=== PATIENT | female | born 1980 | race Caucasian/White ===

== ENCOUNTER 2017-08-09 12:36 | Emergency (ER) | payer SELFPAY ==
[2017-08-09] MEDS ORDERED: Naproxen 500 MG TAB ONE (14:40)
[2017-08-09] MEDS ORDERED: AMOXicillin 250 MG CAP ONE (14:40)
[2017-08-09] MEDS ORDERED: Oxymetazoline HCl 0.05% ( 15 ML ) ONE (14:40)
[2017-08-09] MEDS ORDERED: Benzonatate 100 MG CAP ONE (14:40)
== END 2017-08-09 14:50 | disposition home or self-care (01) ==
LOC: MADERS 12:36
DX: J01.90 Acute sinusitis, unspecified (principal); F41.9 Anxiety disorder, unspecified; F17.210 Nicotine dependence, cigarettes, uncomplicated
CPT/HCPCS: 99283

== ENCOUNTER 2017-12-18 21:07 | Emergency (ER) | payer MEDICAID ==
[2017-12-18] MEDS ORDERED: Ibuprofen 800 MG TAB ONE (21:28)
[2017-12-18] MEDS ORDERED: Amoxicillin/Potassium Clav 875 MG TAB ONE (21:28)
[2017-12-18] MEDS ORDERED: predniSONE 20 MG TAB ONE (21:28)
[2017-12-18] MEDS ORDERED: Pseudoephedrine HCl 30 MG TAB ONE (21:32)
== END 2017-12-18 21:45 | disposition home or self-care (01) ==
LOC: MADERS 21:07
DX: J01.90 Acute sinusitis, unspecified (principal); F17.210 Nicotine dependence, cigarettes, uncomplicated
CPT/HCPCS: 99283; J7506

== ENCOUNTER 2018-08-18 11:03 | Emergency (ER) | payer MEDICAID ==
[~2018-08-18 11:03] MED LIST: Iopamidol 370 76% 100 ML VIAL ONE
[2018-08-18 12:10] LABS: #Basophils 0.1 thou/uL (0.0-0.2); #Eosinphils 0.3 thou/uL (0.0-0.7); #Lymphocytes 2.9 thou/uL (1.20-3.40); #Monocytes 0.7 thou/uL (0.11-0.59); #Neutrophils 8.5 thou/uL (1.40-6.50); %Basophils 0.9 % (0.0-1.0); %Eosinophils 2.2 % (0.0-10.0); %Lymphocytes 23.1 % (21.0-51.0); %Monocytes 5.3 % (0.0-10.0); %Neutrophils 68.5 % (42.0-75.0); Hemoglobin 13.5 g/dL (12.0-16.0); Mean Corpuscular HGB CONC 31.9 g/dL (32.0-36.0); Mean Corpuscular Hemoglobin 27.5 pg (27.0-31.0); Mean Corpuscular Volume 86.2 fL (78.0-98.0); Mean Platelet Volume 9.1 fL (7.4-10.4); Platelet Count 293 thou/uL (130-400); RBC Distribution Width 13.8 % (11.5-14.5); Red Blood Cell (RBC) Count 4.92 mill/uL (4.20-5.40); White Blood Cell (WBC) Count 12.3 thou/uL (4.8-10.8)
[2018-08-18 12:13] LABS: Pregnancy Test - Urine (BHCG) Negative (Negative); Pregu Control Background? CLEAR/WHITE (CLR/WHITE); Pregu Control Bar Appear? YES (CONTROL BAR); Specific Gravity 1.015 (1.002-1.036)
[2018-08-18 12:14] LABS: Bilirubin Negative (Negative); Blood, Urine Moderate (Negative); Clarity Clear (Clear); Glucose, Urine (Dipstick) Negative (Negative); Leukocyte Negative (Negative); Nitrite Negative (Negative); Protein, Urine (Dipstick) Negative (Neg-Trace); Specific Gravity, Urine 1.015 (1.005-1.030); Urobilinogen 0.2 mg/dL (0.2-1.0); pH, Urine 6.5 (5.0-9.0)
[2018-08-18 12:15] LABS: Bacteria/HPF Rare-Few HPF (None Seen); WBC/HPF 0-3 HPF (0-3)
[2018-08-18 12:28] LABS: ALT (SGPT) 46 U/L (8-55); AST (SGOT) 21 U/L (5-34); Albumin 4.3 g/dL (3.5-5.0); Alkaline Phosphatase 110 U/L (40-150); Anion Gap 12 mmol/L (10-20); BUN (Urea Nitrogen) 8 mg/dL (7.0-18.7); Bilirubin, Total 0.2 mg/dL (0.2-1.2); Calc. Creatinine Clearance 0 mL/min (70-130); Calcium 9.5 mg/dL (7.8-10.44); Carbon Dioxide 24 mmol/L (22-29); Chloride 104 mmol/L (98-107); Estimated GFR-MDRD Greater than 90; Globulin 3.3 g/dL (2.4-3.5); Glucose 91 mg/dL (70-105); Potassium 3.8 mmol/L (3.5-5.1); Protein, Total 7.6 g/dL (6.0-8.3); Sodium 136 mmol/L (136-145)
--- NOTE | 2018-08-18 12:32 | CT ---
CT abdomen with contrast CT pelvis with contrast: DATE: 08/18/2018 HISTORY: 38-year-old female with bilateral lower quadrant abdominal pain COMPARISON: None TECHNIQUE: IV injection of iodinated contrast media:Administered Oral contrast media:Not administered FINDINGS: There is minimal dilation of bilateral renal collecting systems, right greater than left. Bilateral r enal parenchymal nephrograms are symmetrical and normal. Abdominal aorta, adrenals, pancreas, liver, spleen, appendix, and urinary bladder, are normal. No signs of colonic diverticulitis. No small bowel dilation. 2.6 x 2.4 x 2.8 cm left adnexal cyst. No ascites or pneumoperitoneum. IMPRESSION: 1) normal appendix. 2) slightly less than 3 cm left adnexal cyst.
== END 2018-08-18 13:56 | disposition home or self-care (01) ==
LOC: MADERS 11:03
DX: N83.202 Unspecified ovarian cyst, left side (principal); F41.9 Anxiety disorder, unspecified; F17.210 Nicotine dependence, cigarettes, uncomplicated
CPT/HCPCS: 74177; 80053; 81003; 81015; 81025; 85025; Q9967

== ENCOUNTER 2024-11-15 09:43 | Emergency (ER) | payer OTHER, SELFPAY ==
[2024-11-15] MEDS ORDERED: Dexamethasone 4 MG TAB ONE (10:34)
== END 2024-11-15 10:40 | disposition home or self-care (01) ==
LOC: MADERS 09:43
DX: J32.9 Chronic sinusitis, unspecified (principal); E78.00 Pure hypercholesterolemia, unspecified; F17.210 Nicotine dependence, cigarettes, uncomplicated
CPT/HCPCS: 87081; 87426; 87430; 99283; J8540